=== PATIENT | female | born 1970 | race Caucasian/White ===

== ENCOUNTER 2023-12-10 12:33 | Outpatient (OUT) | payer OTHER, SELFPAY ==
--- NOTE | 2023-12-10 12:46 | VEIN_ITS ---
Patient Name: KERI AGRAWAL MR#: [id number] : 1970 Exam Date: 12/10/2023 Ordering Doctor: DR BE APONTE M.D. RADIOLOGY REPORT PROCEDURE: [facility] FACILITY EST COMPREHENSIVE VEIN CENTER - OFFICE VISIT INITIAL COMPARISON: None. PROGRESS NOTES: [age] year old female who presents with a 8 year history of dilated discolored veins, leg pain, swelling, muscle cramping, heaviness. The patient's leg symptoms are symmetric bilaterally.. There has been a progression of symptoms over time. This increases with prolonged leg dependency. The patient describes an improvement with rest and elevation. The patient denies any signs and symptoms to suggest arterial ischemia. The patient describes a family history heart disease, diabetes, and COPD. The patient has drinking and smoking history of : None. Patient has a past medical history significant for extensive past medical history to include cellulitis, hypertension, diabetes, congestive heart failure, and currently on warfarin. The patient has a history of several prior episodes of deep vein thrombosis. See separate history and physical for medication list. No prior treatment for varicose or spider veins. No prior use of compression stockings; but due to patient's physical limitations may not be able to put them on. After review of nurse notes, history and physical exam I discussed at length the pathophysiology of venous hypertension and possible treatments, therapies and strategies available. We discussed at length the importance of elevating the lower extremities above the level of the heart, increased physical activity and compression stocking use. Ultrasound venous reflux study performed today was discussed at length with the patient. The report demonstrates abnormally dilated and incompetent great saphenous veins bilaterally with social did abnormally dilated branch saphenous varicosities.. PHYSICAL EXAM: The right leg demonstrates a few scattered varicosities, a few spider veins, no ulceration, moderate edema, marked distal lower extremity skin discoloration. The left leg demonstrates a few varicosities, a few spider veins, no ulceration, moderate edema, no skin discoloration. Both thighs, legs and feet were symmetrically warm to the touch. Good posterior tibial and dorsalis pedis pulses were present bilaterally. VEIN/VC Facility EST Comprehensive IMPRESSION: 1. Bilateral lower extremity venous insufficiency 2. Bilateral lower extremity varicose veins 3. Mild-moderate bilateral lower extremity subcutaneous edema 4. No flow significant arterial disease 5. CEAP: C4a, EP, AP, [place] PLAN: 1. Continued use of compression stockings 2. Elevated legs and increased physical activity symptomatic relief 3. Endovenous laser ablation of right and left great saphenous veins. 4. Microfoam chemical ablation of bilateral lower extremity incompetent branch saphenous varicosities. Nurse notes, history and physical were reviewed and confirmed, see attached forms. The nurse was present throughout the physical exam and consultation Dictated by: Awais Kowalski M.D. on 12/10/2023 at 15:27 Approved by: Awais Kowalski M.D. on 12/10/2023 at 15:33
--- NOTE | 2023-12-10 12:46 | VEIN_ITS ---
Patient Name: KERI AGRAWAL MR#: [id number] : 1970 Exam Date: 12/10/2023 Ordering Doctor: DR BE APONTE M.D. RADIOLOGY REPORT PROCEDURE: VC EXT VENOUS REFLUX GABY LMTD COMPARISON: None. INDICATIONS: Pain due to varicose veins of bilateral legs I83.813 TECHNIQUE: Duplex imaging of the lower extremity to assess the deep and superficial venous system for the presence of deep or superficial venous incompetence and to document the location and severity of disease. The study includes evaluation of the great saphenous vein (GSV), anterior accessory saphenous vein (AASV) and small saphenous vein (SSV). Patient scanned in reverse Trendelenburg and standing. FINDINGS: RIGHT LOWER EXTREMITY: Saphenofemoral Junction Reflux: Yes 10.0mm 2.8 sec GSV: Diam (mm) Reflux/ Time (sec) Proximal Thigh 7.5 Yes 1.9 Mid Thigh 7.3 Yes 2.1 Distal Thigh 7.4 Yes 2.6 Prox Calf 7.7 Yes 2.2 Mid Calf 6.2 Yes 1.2 Saphenopopliteal Junction Reflux: 3.8mm Yes 1.6 SSV: Proximal Calf 3.6 Yes 0.6 Mid Calf 2.9 No AASV: Proximal Thigh 4.2 No Mid Thigh 4.7 Distal Thigh Thrombi: No acute or chronic thrombus visualized Compressibility: Normal Flow: 0.9s reflux in the popliteal vein Preforator: Dist/med calf 3.8mm with 1.9s reflux. Tech Note: Incompetent GSV. Patent varicose vein mid/med thigh 3.7mm with 1.6s reflux. Patent varicose prox/med calf 5.2mm with 1.1s reflux. Patent varicose vein 5.0mm with 1.7s reflux. LEFT LOWER EXTREMITY: Saphenofemoral Junction Reflux: Yes 7.6 mm 1.8 sec GSV: Diam (mm) Reflux/Time (sec) Proximal Thigh 8.1 Yes 1.9 Mid Thigh 5.7 Yes 1.3 Distal Thigh 6.3 Yes 1.4 Prox Calf 6.8 Yes 0.8 Mid Calf 5.9 Yes 0.6 Saphenopopliteal Junction Relux: 2.5 mm No SSV: Proximal Calf 3.8 Yes 0.9 Mid Calf 2.8 No AASV: Proximal Thigh 6.4 No Mid Thigh 4.2 No Distal Thigh Thrombi: No acute or chronic thrombus visualized Compressibility: Normal Flow: Normal General Cleaner: Dist/med calf 3.5mm with 0s reflux. Tech Note: Incompetent GSV. Patent varicose vein medial knee 4.2mm with 0.7s reflux. Patent varicose vein mid/med thigh 3.7mm with 1.5s reflux. CONCLUSION: 1. Abnormally dilated and incompetent great saphenous veins bilaterally with associated branch saphenous varicosities. Dictated by: Awais Kowalski M.D. on 12/10/2023 at 14:29 Approved by: Awais Kowalski M.D. on 12/10/2023 at 15:27
== END 2023-12-10 12:34 | disposition home or self-care (01) ==
LOC: VC 12:34
PROVIDERS: PCP Radiology Diagnostic Radiology; Visit Provider Radiology Diagnostic Radiology
DX: I83.813 Varicose veins of bilateral lower extremities with pain (principal)
CPT/HCPCS: 93970; G0463

== ENCOUNTER 2024-01-19 12:54 | Outpatient (OUT) | payer OTHER, SELFPAY ==
--- NOTE | 2024-01-19 13:06 | VEIN_ITS ---
[address] [address] Patient Name: KERI AGRAWAL MRN: [id number] date: 1970 Sex: F Assigned Patient Location: Current Patient Location: Accession/Order Number: [id number] Exam Date: 01/19/2024 13:13 Report Date: 01/19/2024 15:50 At the request of: BE APONTE Procedure: VC Endovenous Ablation 1VeinRT EXAMINATION: VC Endovenous Ablation 1VeinRT HISTORY: I83.813 Pain due to varicose veins of bilateral legs The risks and benefits of the procedure had been previously discussed, and were rediscussed at length. Informed written consent was obtained. Laila Stewart RN and Maggie Mcdermott RDMS, RVT assisted. Time out procedure was performed. The right lower extremity was prepared and draped in the usual sterile fashion to allow knee flexion in the sterile field. Duplex ultrasound probe was draped in a sterile cover, sterile transmission gel was used. Venous mapping was performed with the areas of dilation and large tributaries marked. The total length was 55 cm from the entry 3 cm above the ankle to 3 cm below the Saphenofemoral junction. The diameter of the right saphenous vein ranged from 7.7 mm. A 30 gauge needle and 1% buffered lidocaine was used to anesthetize the entry site. A 4 mm incision was made with a scalpel and the saphenous vein was entered percutaneously under direct ultrasound guidance with a micropuncture set, a single stick was successful in gaining access. A micro-guide wire was inserted and the needle removed. A micro-set including a dilator was inserted over the microwire and the needle and dilator were removed. A guide wire was inserted through the micro-set and guided through the saphenous vein to the saphenofemoral junction. The dilator was removed and an introducer sheath was inserted over the wire until the end of the sheath entered the saphenofemoral junction. The dilator and wire were removed and the 600 micron fiber was introduced and placed and positioned so that it extended beyond the sheath and was 3 cm distal to the saphenofemoral or saphenopopliteal junction. Final position of the fiber was determined by ultrasound guidance and duplex imaging. Tumescent anesthetic was delivered by ultrasound guidance. 200 cc of fluid was delivered along the entire course of the saphenous vein. The solution consisted of 1000 cc of normal saline with 40 mL of 1% lidocaine and 20 mL of sodium bicarbonate. A final positioning check was made. The energy source was turned on by means of the foot pedal and the fiber and sheath were withdrawn. The total number of Joules delivered was 2587. The laser was active for 323 seconds under continuous pulse, average laser use of 8 J. Laser start time: 2:01 PM Laser stop time: 2:06 PM Date: 01/19/2024. A duplex ultrasound revealed compressibility and flow at the saphenofemoral junction immediately after the procedure. Hemostasis at the access site was achieved. The skin incision of the saphenous vein was closed with a 4 x 4. A compression stocking was applied. Postop instructions were given. A follow up appointment was recommended and scheduled. The patient tolerated the procedure well. Electronically authenticated by: EFRAIN GARCIA Date: 01/19/2024 15:50
[2024-01-19] MEDS: LIDOCAINE HCL 1% 100 MG/10 ML MDV INJ (13:35)
[2024-01-19] MEDS: 0.9 % SODIUM CHLORIDE 500 ML, LIDOCAINE HCL 20 ML, SODIUM BICARBONATE 10 MEQ INJ (13:36)
== END 2024-01-19 12:55 | disposition home or self-care (01) ==
LOC: VC 13:05
PROVIDERS: PCP Radiology Diagnostic Radiology; Visit Provider Radiology Diagnostic Radiology
DX: I83.813 Varicose veins of bilateral lower extremities with pain (principal)
CPT/HCPCS: 36478

== ENCOUNTER 2024-02-09 12:44 | Outpatient (OUT) | payer OTHER, SELFPAY ==
--- NOTE | 2024-02-09 12:44 | VEIN_ITS ---
Patient Name: KERI AGRAWAL MR#: [id number] : 1970 Exam Date: 02/09/2024 Ordering Doctor: DR JOSÉ ANTONIO POE M.D. RADIOLOGY REPORT PROCEDURE: [facility] FACILITY EST LMTD VEIN CENTER - OFFICE VISIT FOLLOW UP COMPARISON: None. PROGRESS NOTES: The patient reports no significant problems following intravenous laser ablation of the right great saphenous vein. The patient did miss multiple follow-up exams and was counseled on the importance of follow-up after procedures. The patient did not wear compression stocking as she is not able to: Due to lack of strength. Physical exam demonstrates no bruising. No erythema or warmth to suggest cellulitis or thrombophlebitis. No active ulceration. Review of the ultrasound performed the same day demonstrates occlusive thrombus extending throughout the treated right great saphenous vein. No deep thrombus.. The patient expressed a desire to proceed with treatment of incompetent left great saphenous vein.. VEIN/VC Facility EST LMTD IMPRESSION: 1. Successful ablation of the right great saphenous vein 2. Persistent incompetent left great saphenous vein. PLAN: Intravenous laser ablation of the left great saphenous vein Nurse notes, history and physical were reviewed and confirmed, see attached forms. The nurse was present throughout the physical exam and consultation Dictated by: José Antonio Poe MD on 02/09/2024 at 13:36 Approved by: José Antonio Poe MD on 02/09/2024 at 13:49
--- NOTE | 2024-02-09 12:45 | VEIN_ITS ---
Patient Name: KERI AGRAWAL MR#: [id number] : 1970 Exam Date: 02/09/2024 Ordering Doctor: DR JOSÉ ANTONIO POE M.D. RADIOLOGY REPORT PROCEDURE: VC EXT VENOUS RT LMTD COMPARISON: None. INDICATIONS: I80.01 Phlebitis of superficial veins of rt lower extremity TECHNIQUE: Lower extremity robert scale and Duplex Doppler evaluation of the deep venous system from the inguinal ligament through the calf veins. FINDINGS: REGION: Right lower extremity. THROMBI: Negative for DVT. Heat induced thrombus visualized 2.4cm from the SFJ. The heat induced thrombus extends from groin to distal calf. COMPRESSIBILITY: Non-compressible segments corresponding to thrombus FLOW: Areas of no flow corresponding to thrombus CONCLUSION: Post ablation occlusion of the right great saphenous vein with heat induced thrombus 2.4 cm from the saphenofemoral junction Dictated by: José Antonio Poe MD on 02/09/2024 at 13:00 Approved by: José Antonio Poe MD on 02/09/2024 at 13:02
== END 2024-02-09 12:45 | disposition home or self-care (01) ==
LOC: VC 12:44
PROVIDERS: PCP Radiology Diagnostic Radiology; Visit Provider Radiology Diagnostic Radiology
DX: I80.01 Phlebitis and thrombophlebitis of superficial vessels of right lower extremity (principal)
CPT/HCPCS: 93971; G0463

== ENCOUNTER 2024-02-24 12:56 | Outpatient (OUT) | payer OTHER, SELFPAY ==
--- NOTE | 2024-02-24 12:59 | VEIN_ITS ---
[address] [address] Patient Name: KERI AGRAWAL MRN: [id number] date: 1970 Sex: F Assigned Patient Location: Current Patient Location: Accession/Order Number: [id number] Exam Date: 02/24/2024 13:10 Report Date: 02/24/2024 14:07 At the request of: BE APONTE Procedure: VC Endovenous Ablation 1VeinLT EXAMINATION: VC Endovenous Ablation 1VeinLT HISTORY: Pain due to varicose veins of bilateral legs I83.813 COMPARISON: No relevant comparison available. TECHNIQUE: The risks and benefits of the procedure had been previously discussed, and were rediscussed at length. Informed written consent was obtained. Leyda Pearson and Jian Flores assisted. Time out procedure was performed. The left lower extremity was prepared and draped in the usual sterile fashion to allow knee flexion in the sterile field. Duplex ultrasound probe was draped in a sterile cover, sterile transmission gel was used. Venous mapping was performed with the areas of dilation and large tributaries marked. The total length was 63 cm from the entry 6 cm above the medial malleolus to 3 cm below the saphenofemoral junction. The diameter of the greater saphenous vein ranged from 4-8 mm. A 30 gauge needle and 1% buffered lidocaine was used to anesthetize the entry site. A 4 mm incision was made with a scalpel and the saphenous vein was entered percutaneously under direct ultrasound guidance with a micropuncture set, a single stick was successful in gaining access. A micro-guide wire was inserted and the needle removed. A micro-set including a dilator was inserted over the microwire and the needle and dilator were removed. A 0.018 guide wire was inserted through the micro-set and threaded through the saphenous vein to the saphenofemoral junction. The dilator was removed and an introducer sheath was inserted over the wire until the end of the sheath entered the saphenofemoral junction. The dilator and wire were removed and the 600 micron fiber was introduced and placed and positioned so that it extended beyond the sheath and was 3 cm peripheral to the saphenofemoral femoral junction. Final position of the fiber was determined by ultrasound guidance and duplex imaging. Tumescent anesthetic was delivered by ultrasound guidance. 250 cc of fluid was delivered along the entire course of the saphenous vein. The solution consisted of 1000 cc of normal saline with 40 mL of 1% lidocaine and 20 mL of sodium bicarbonate. A final positioning check was made. The energy source was turned on by means of the foot pedal and the fiber and sheath were withdrawn. The total number of Joules delivered was 2924. The laser was active for 366 seconds under continuous pulse, average laser use of 8 J. Laser start time 1:45 PM 02/24/2024 . Laser stop time 1:52 PM 02/24/2024 . A duplex ultrasound revealed compressibility and flow at the saphenofemoral junction immediately after the procedure. Hemostasis at the access site was achieved. The skin incision of the saphenous vein was closed with a 4 x 4. A compression stocking was applied. Postop instructions were given. A follow up appointment was recommended and scheduled. The patient tolerated the procedure well and was discharged in good condition . VEIN/VC Endovenous Ablation 1VeinLT IMPRESSION: Technically successful endovenous laser ablation left great saphenous vein Electronically authenticated by: BE APONTE Date: 02/24/2024 14:07
[2024-02-24] MEDS: LIDOCAINE HCL 1% 100 MG/10 ML MDV INJ (13:06)
[2024-02-24] MEDS: 0.9 % SODIUM CHLORIDE 500 ML, LIDOCAINE HCL 20 ML, SODIUM BICARBONATE 10 MEQ INJ (13:06)
== END 2024-02-24 12:57 | disposition home or self-care (01) ==
LOC: VC 12:56
PROVIDERS: PCP Radiology Diagnostic Radiology; Visit Provider Radiology Diagnostic Radiology
DX: I83.813 Varicose veins of bilateral lower extremities with pain (principal)
CPT/HCPCS: 36478

== ENCOUNTER 2024-02-29 13:39 | Outpatient (OUT) | payer OTHER, SELFPAY ==
--- NOTE | 2024-02-29 11:34 | VEINCLINIC_ITS ---
Vital Signs 3 02/29/24 14:19 Height 5 ft 4 in Weight 122.47 kg BMI 46.3 BP 118/72 BP Location Left Brachial BP Position Sitting BP Cuff Size Adult BP Source Automatic Cuff Respiration 18 Pulse 68 Pulse Oximetry (%) 97 Varicose Veins Awais Gaines MD personally performed the services described in this documentation, as scribed by Gila Pearson RDMS in my presence and it is both accurate and complete. Gila Gaines RDMS, am scribing for, and in the presence of, Dr. Marshall Kowalski and in the presence of the patient. thigh: bilateral, knee: bilateral, calf: bilateral, ankle: bilateral and candelario: bilateral aching, dull, sharp, tender and other (heavy) 6 8 years Worsened in recent months: Yes long car trips and sitting bed rest and elevating extremities Reports limb pain, edema, leg edema and other (stasis dermatitis, cellulitis, hyperpigmentation) History of lower extremity trauma: No Superficial thrombophlebitis: Yes (DVT) Family history of varicose veins: yes Has patient had previous lower extremity venous surgery: No Patient has previously received the following treatment(s) for lower extremity varicose veins: Reports none Does patient have a history of : no Does patient intend to have future pregnancies: no Has patient had lower extremity venous scan with relux testing: Yes Support hose used: No Problems walking or doing physical activity: Yes Do you walk much: No Do you stand much: No Medication compliance: good Large amounts of Vitamin K: No Review of Systems 2 ROS0 Narrative Awais Gaines MD personally performed the services described in this documentation, as scribed by Gila Pearson RDMS in my presence and it is both accurate and complete. Gila Gaines RDMS, am scribing for, and in the presence of, Dr. Marshall Kowalski and in the presence of the patient. Status of ROS 10 or more systems reviewed and unremark able except as noted in history and below Cardiovascular Reports: edema, swelling of feet/ankles and leg pain with exertion Musculoskeletal Reports: extremity pain, extremity swelling, joint pain, joint swelling, muscle cramps and muscle weakness Integumentary/Breast Reports: itching, redness, skin pain, skin tenderness, skin swelling and changes in skin color Neurological Reports: weakness in extremities [facility] Medical History (Updated 02/29/24 @ 13:01 by Gila Pearson) [place] filter in place ?Z95.828 - Presence of other vascular implants and grafts (ICD-10) Phlebitis and thrombophlebitis of superficial vessels of right lower extremity ?I80.01 - Phlebitis and thrombophlebitis of superficial vessels of right lower extremity (ICD-10) Phlebitis and thrombophlebitis of superficial vessels of left lower extremity ?I80.02 - Phlebitis and thrombophlebitis of superficial vessels of left lower extremity (ICD-10) Varicose veins of bilateral lower extremities with pain ?I83.813 - Varicose veins of bilateral lower extremities with pain (ICD-10) Weakness of both lower limbs ?R29.898 - Other symptoms and signs involving the musculoskeletal system (ICD-10) Lower extremity edema ?R60.0 - Localized edema (ICD-10) Bowel obstruction ?K56.609 - Unspecified intestinal obstruction, unspecified as to partial versus complete obstruction (ICD-10) Hernia ?K46.9 - Unspecified abdominal hernia without obstruction or gangrene (ICD- 10) Anxiety with depression ?F41.8 - Other specified anxiety disorders (ICD-10) Anxiety disorder ?F41.9 - Anxiety disorder, unspecified (ICD-10) Morbid obesity ?E66.01 - Morbid (severe) obesity due to excess calories (ICD-10) Chronic obstructive pulmonary disease (COPD) ?J44.9 - Chronic obstructive pulmonary disease, unspecified (ICD-10) Congestive heart failure (CHF) ?I50.9 - Heart failure, unspecified (ICD-10) Asthma ?J45.909 - Unspecified asthma, uncomplicated (ICD-10) Diabetes mellitus type 2, noninsulin dependent ?E11.9 - Type 2 diabetes mellitus without complications (ICD-10) Hypertension ?I10 - Essential (primary) hypertension (ICD-10) DVT (deep venous thrombosis) ?I82.409 - Acute embolism and thrombosis of unspecified deep veins of unspecified lower extremity (ICD-10) Cellulitis ?L03.90 - Cellulitis, unspecified (ICD-10) Surgical History (Updated 02/29/24 @ 13:01 by Gila Pearson) Status post ablation of incompetent vein using laser ?Z98.890 - Other specified postprocedural states (ICD-10) History of carpal tunnel release ?Z98.890 - Other specified postprocedural states (ICD-10) History of tonsillectomy ?Z90.89 - Acquired absence of other organs (ICD-10) H/O exploratory laparotomy ?Z98.890 - Other specified postprocedural states (ICD-10) H/O bilateral oophorectomy ?Z90.722 - Acquired absence of ovaries, bilateral (ICD-10) History of endometrial ablation ?Z98.890 - Other specified postprocedural states (ICD-10) History of hernia repair ?Z98.890 - Other specified postprocedural states (ICD-10) ?Z87.19 - Personal history of other diseases of the digestive system (ICD-10) Meds Home Medications and Allergies Home Medications ?Medication ?Instructions ?Recorded ?Confirmed ?Type Coumadin See Rx Instructions .Route .COMPLEX 02/29/24 02/29/24 History calcium carbonate PO 02/29/24 History hdvazkkig-fyrrncwyo-mydowu alk PO 02/29/24 History conjugated estrogens .ROUTE 02/29/24 History empagliflozin .ROUTE 02/29/24 History furosemide 40 mg tablet (Lasix) 40 mg PO DAILY 02/29/24 02/29/24 History insulin aspart U-100 .ROUTE 02/29/24 History loratadine .ROUTE 02/29/24 History lorazepam .Route 02/29/24 History lurasidone .ROUTE 02/29/24 History meclizine .ROUTE 02/29/24 History montelukast .ROUTE 02/29/24 History potassium chloride .ROUTE 02/29/24 History pregabalin .ROUTE 02/29/24 History semaglutide subcut 02/29/24 History sertraline .ROUTE 02/29/24 History tizanidine .ROUTE 02/29/24 History trimipramine .ROUTE 02/29/24 History Allergies Allergy/AdvReac Type Severity Reaction Status Date / Time morphine Allergy Unknown Verified 02/19/24 17:42 Exam Narrative Exam Narrative: IAwais MD personally performed the services described in this documentation, as scribed by Gila Pearson RDMS in my presence and it is both accurate and complete. IGila Bollenbacher RDMS, am scribing for, and in the presence of, Dr. Marshall Kowalski and in the presence of the patient. Constitutional Vital Signs, click to edit/add: Awais Gaines MD personally performed the services described in this documentation, as scribed by Gila Pearson RDMS in my presence and it is both accurate and complete. Gila Gaines RDMS am scribing for, and in the presence of, Dr. Marshall Kowalski and in the presence of the patient. Documenting provider has reviewed patient's vital signs: yes Common normals: oriented x3 Nutritional appearance: obese centrally obese Lymph Lymphatic: no lymphedema noted Cardio Peripheral pulses: posterior tibial pulses present and dorsalis pedis pulses present Extremity General: calf tenderness and edema Right lower extremity: lower leg Right lower leg: inspection and palpation Left lower extremity: lower leg Left lower leg: inspection and palpation Extremity image (front): 2 1. Varicose vein 2. Varicose vein 3. Varicose vein 4. Varicose vein Neuro Common normals: oriented x3 Results Imaging Venous US: Radiologist's impression: Heat induced thrombus in 0.6 cm from SFJ and extends to distal lower leg. Assessment and Plan Assessment and Plan (1) Phlebitis and thrombophlebitis of superficial vessels of left lower extremity: Plan Patient in today for follow up ultrasound of lower extremity following treatment of EVLT of left GSV completed on 02/24/24. Awais Gaines MD personally performed the services described in this documentation, as scribed by Gila Pearson RDMS in my presence and it is both accurate and complete. Gila Gaines RDMS am scribing for, and in the presence of, Dr. Marshall Kowalski and in the presence of the patient.
--- NOTE | 2024-02-29 13:43 | VEIN_ITS ---
Patient Name: KERI AGRAWAL MR#: [id number] : 1970 Exam Date: 02/29/2024 Ordering Doctor: DR BE APONTE M.D. RADIOLOGY REPORT PROCEDURE: VC EXT VENOUS LT LIMITED COMPARISON: None. INDICATIONS: I80.02 Phlebitis of superficial veins of lt lower extremity TECHNIQUE: Lower extremity robert scale and Duplex Doppler evaluation of the deep venous system from the inguinal ligament through the calf veins. FINDINGS: REGION: Left lower extremity. THROMBI: Negative for DVT. Heat induced thrombus in left GSV 0.6cm from SFJ and extends to distal lower leg. COMPRESSIBILITY: Non-compressible segments corresponding to thrombus FLOW: Areas of no flow corresponding to thrombus OTHER: CONCLUSION: 1. Successful post ablation occlusion of left great saphenous vein. Dictated by: Awais Kowalski M.D. on 02/29/2024 at 14:47 Approved by: Awais Kowalski M.D. on 02/29/2024 at 14:48
--- NOTE | 2024-02-29 13:43 | VEIN_ITS ---
Patient Name: KERI AGRAWAL MR#: [id number] : 1970 Exam Date: 02/29/2024 Ordering Doctor: DR BE APONTE M.D. RADIOLOGY REPORT PROCEDURE: [facility] - OFFICE VISIT FOLLOW UP COMPARISON: [facility], 02/09/2024. PROGRESS NOTES: The patient reports improvement in leg symptoms. There has been interval reduction in varicosities. The patient has followed our recommendations to walk 20-30 minutes once or twice per day since the procedure. Physical exam demonstrates decrease in varicosities of the leg. Persistent varicosities are identified along the legs bilaterally. Review of the ultrasound performed the same day demonstrates occlusive thrombus extending throughout the treated vein(s), see separate report, consistent with a successful ablation. No thrombus extending into or beyond the saphenofemoral junction. The patient expressed a desire to proceed with treatment of remaining incompetent branch saphenous varicosities. The patient was informed that treatment was a process and would require 2-3 procedures/sessions. [facility]: 1. Successful ablation of the left great saphenous vein(s). 2. Persistent incompetent varicose veins and lower extremity symptoms. PLAN: Microfoam chemical ablation of right and left lower extremity incompetent branch saphenous varicosities. Nurse notes, history and physical were reviewed and confirmed, see attached forms. The nurse was present throughout the physical exam and consultation Dictated by: Awais Kowalski M.D. on 02/29/2024 at 14:48 Approved by: Awais Kowalski M.D. on 02/29/2024 at 14:51
[2024-02-29 14:19] VITALS: BP 118/72; PULSE 68; O2SAT 97; BMI 46.3
--- NOTE | 2024-02-29 15:12 | P.DS_ITS ---
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
--- NOTE | 2024-02-29 15:12 | W.VEIN ---
Discharge Plan Discharge Disposition: Home, Self-Care Outpatient Diagnostics: VC INJ Foam Sclerosant WUStoney CPA TAX (Routine) Timeframe: 2 Weeks Facility: [facility] - Location: Vein Center Ordered By: Awais Kowalski Follow Up Appointments: 03/14/2024 Print Language: Telugu Discharge Date/Time: 02/29/24 15:13
== END 2024-02-29 15:13 | disposition home or self-care (01) ==
LOC: VC 13:39
PROVIDERS: PCP Radiology Diagnostic Radiology; Visit Provider Radiology Diagnostic Radiology
DX: I80.02 Phlebitis and thrombophlebitis of superficial vessels of left lower extremity (principal)
CPT/HCPCS: 93971; G0463

== ENCOUNTER 2024-03-14 13:00 | Outpatient (OUT) | payer OTHER, SELFPAY ==
--- NOTE | 2024-03-14 13:02 | VEIN_ITS ---
[address] [address] Patient Name: KERI AGRAWAL MRN: [id number] date: 1970 Sex: F Assigned Patient Location: Current Patient Location: Accession/Order Number: [id number] Exam Date: 03/14/2024 13:02 Report Date: 03/14/2024 14:11 At the request of: EFRAIN GARCIA Procedure: VC INJ Foam Sclerosant WUS SEED SPECIALIST PROCEDURE: VC INJ Foam Sclerosant WUS SEED SPECIALIST COMPARISON: None. HISTORY: I83.813 - Varicose veins of bilateral lower extremities w... Pre-operative Diagnosis: CEAP class C3 venous insufficiency with pain, tenderness, edema and incompetent left saphenous and varicose vein(s), chronic venous insufficiency left leg secondary to venous incompetence Post-operative Diagnosis: CEAP class C3 venous insufficiency with pain, tenderness, edema and incompetent left saphenous and varicose vein(s), chronic venous insufficiency left leg secondary to venous incompetence Procedure Performed: 1. Ultrasound-guided microfoam chemical ablation with Varithenaregistered 2. Intraoperative ultrasound guidance Indications for Procedure: 53-year-old female who presents with a long history of lower extremity pain and swelling varicose veins. The patient failed conservative medical therapy including medical compression stockings, exercise and analgesics. Prior procedures include endovenous laser ablation. Multiple incompetent varicosities of the left leg. Duplex scan showed reflux and enlarged diameters up to 5 mm. The patient underwent informed consent including management options where the complications of infection, bleeding, pain, and skin injury were discussed. Particular attention was spent discussing thrombus extension and deep vein thrombosis as well as the possibility of pulmonary embolus and treatment with oral or injectable blood thinners. Procedure: The patient walked to the procedure room. All applicable staff donned appropriate apparel. A procedure timeout was performed to confirm correct patient, correct extremity, correct procedure, and correct room set-up including presence of all applicable supplies, devices, and drugs. A duplex ultrasound, performed by myself confirmed the location and incompetence of branch saphenous varicosities and their course was marked on the skin together with the dilated tributaries. The extent of treatment of the vein and the associated varicosities was determined through ultrasound mapping. The skin was prepped and then punctured with a butterfly needle and advanced under ultrasound guidance. The Varithenaregistered canister was activated and the canister was primed and purged as required in the instructions for use. Varithenaregistered was drawn into a sterile syringe. The following injections were made: 6 cc injected into a 4 mm varicose vein, branch saphenous varicosities extending from the great saphenous vein. Associated perforating vein was held closed with manual pressure interval dissipation of foam was visualized by ultrasound 6 cc injected into a 5 mm varicose vein posterior mid calf Varithenaregistered was slowly administered at 0.5-1.0 cc/second with close observation by ultrasound of its course in the vessels. Total volume utilized was: 12cc. Following administration of Varithenaregistered the leg was elevated and the patient was asked to repeatedly dorsiflex the ankle to limit flow of Varithenaregistered into perforating veins. Once appropriate spasm had been confirmed in the treated veins, the vascular catheter was removed from the leg and light pressure was applied over the puncture site for hemostasis. The common femoral and deep superficial veins were then evaluated for flow and compressibility prior to dressing placement. The lower extremity was kept elevated at 45 degrees above the horizontal and cording material was applied over the saphenous segments and tributaries to allow for eccentric compression over the target vessels including the targeted saphenous vein(s). A multilayer dressing was applied consisting of foam pads, coban and thigh-high 20-30 mm Hg compression elastic support hose were placed on the patient. The leg was lowered only after compression had been applied and the patient was immediately ambulatory. The patient ambulated 10 minutes under supervision and was without apparent concerns at time of release. Post-care instructions include advising patient to keep post-treatment bandages in place and dry for 48 hours, avoid extended periods of inactivity, avoid heavy exercise for one week, wear compression stockings on the treated leg continuously for two weeks, to walk daily for 10 minutes over the next month. The patient was instructed to take an anti-inflammatory medicine as needed and to follow up for color duplex scan of the Saphenous veins, the treated branch saphenous varicosities, the adjacent deep veins, and additional treatment within 7 days. PERSONNEL: Jian Flores RN. Trinidad Mcdermott Electronically authenticated by: BE APONTE Date: 03/14/2024 14:11
[2024-03-14 14:51] VITALS: BP 102/56; PULSE 75; O2SAT 95
--- NOTE | 2024-03-14 14:51 | VEINCLINIC_ITS ---
Vital Signs 03/14/24 14:51 BP 102/56 BP Location Right Brachial BP Position Sitting BP Cuff Size Adult BP Source Manual Cuff Respiration 16 Pulse 75 Pulse Oximetry (%) 95 Oxygen Delivery Method Room Air Varicose Veins Patient in this day for varithena/microfoam chemical ablation left leg José Antonio Gaines MD personally performed the services described in this documentation, as scribed by Jian Flores RN in my presence and it is both accurate and complete. IJian RN, am scribing for, and in the presence of, Dr. José Antonio Poe and in the presence of the patient. thigh: bilateral, knee: bilateral, calf: bilateral, ankle: bilateral and candelario: bilateral aching, dull, sharp, tender and other (heavy) 6 8 years Worsened in recent months: Yes long car trips and sitting bed rest and elevating extremities Reports limb pain, edema, leg edema and other (stasis dermatitis, cellulitis, hyperpigmentation) History of lower extremity trauma: No Superficial thrombophlebitis: Yes (DVT) Family history of varicose veins: yes Has patient had previous lower extremity venous surgery: No Patient has previously received the following treatment(s) for lower extremity varicose veins: Reports none Does patient have a history of : no Does patient intend to have future pregnancies: no Has patient had lower extremity venous scan with relux testing: Yes Support hose used: No Problems walking or doing physical activity: Yes Do you walk much: No Do you stand much: No Medication compliance: good Large amounts of Vitamin K: No Review of Systems ROS Narrative José Antonio Gaines MD personally performed the services described in this documentation, as scribed by Jian Flores RN in my presence and it is both accurate and complete. Jian Gaines RN, am scribing for, and in the presence of, Dr. José Antonio Poe and in the presence of the patient. Status of ROS 10 or more systems reviewed and unremark able except as noted in history and below Cardiovascular Reports: edema, swelling of feet/ankles and leg pain with exertion Musculoskeletal Reports: extremity pain, extremity swelling, joint pain, joint swelling, muscle cramps and muscle weakness Integumentary/Breast Reports: redness Neurological Reports: weakness in extremities [facility] Medical History (Updated 02/29/24 @ 13:01 by Gila Pearson) [place] filter in place ?Z95.828 - Presence of other vascular implants and grafts (ICD-10) Phlebitis and thrombophlebitis of superficial vessels of right lower extremity ?I80.01 - Phlebitis and thrombophlebitis of superficial vessels of right lower extremity (ICD-10) Phlebitis and thrombophlebitis of superficial vessels of left lower extremity ?I80.02 - Phlebitis and thrombophlebitis of superficial vessels of left lower extremity (ICD-10) Varicose veins of bilateral lower extremities with pain ?I83.813 - Varicose veins of bilateral lower extremities with pain (ICD-10) Weakness of both lower limbs ?R29.898 - Other symptoms and signs involving the musculoskeletal system (ICD-10) Lower extremity edema ?R60.0 - Localized edema (ICD-10) Bowel obstruction ?K56.609 - Unspecified intestinal obstruction, unspecified as to partial versus complete obstruction (ICD-10) Hernia ?K46.9 - Unspecified abdominal hernia without obstruction or gangrene (ICD- 10) Anxiety with depression ?F41.8 - Other specified anxiety disorders (ICD-10) Anxiety disorder ?F41.9 - Anxiety disorder, unspecified (ICD-10) Morbid obesity ?E66.01 - Morbid (severe) obesity due to excess calories (ICD-10) Chronic obstructive pulmonary disease (COPD) ?J44.9 - Chronic obstructive pulmonary disease, unspecified (ICD-10) Congestive heart failure (CHF) ?I50.9 - Heart failure, unspecified (ICD-10) Asthma ?J45.909 - Unspecified asthma, uncomplicated (ICD-10) Diabetes mellitus type 2, noninsulin dependent ?E11.9 - Type 2 diabetes mellitus without complications (ICD-10) Hypertension ?I10 - Essential (primary) hypertension (ICD-10) DVT (deep venous thrombosis) ?I82.409 - Acute embolism and thrombosis of unspecified deep veins of unspecified lower extremity (ICD-10) Cellulitis ?L03.90 - Cellulitis, unspecified (ICD-10) Surgical History (Updated 02/29/24 @ 13:01 by Gila Pearson) Status post ablation of incompetent vein using laser ?Z98.890 - Other specified postprocedural states (ICD-10) History of carpal tunnel release ?Z98.890 - Other specified postprocedural states (ICD-10) History of tonsillectomy ?Z90.89 - Acquired absence of other organs (ICD-10) H/O exploratory laparotomy ?Z98.890 - Other specified postprocedural states (ICD-10) H/O bilateral oophorectomy ?Z90.722 - Acquired absence of ovaries, bilateral (ICD-10) History of endometrial ablation ?Z98.890 - Other specified postprocedural states (ICD-10) History of hernia repair ?Z98.890 - Other specified postprocedural states (ICD-10) ?Z87.19 - Personal history of other diseases of the digestive system (ICD-10) Meds Home Medications and Allergies Home Medications ?Medication ?Instructions ?Recorded ?Confirmed ?Type Coumadin See Rx Instructions .Route .COMPLEX 02/29/24 02/29/24 History calcium carbonate PO 02/29/24 History kbksmqxut-qmiaeniqn-zgcoqs alk PO 02/29/24 History conjugated estrogens .ROUTE 02/29/24 History empagliflozin .ROUTE 02/29/24 History furosemide 40 mg tablet (Lasix) 40 mg PO DAILY 02/29/24 02/29/24 History insulin aspart U-100 .ROUTE 02/29/24 History loratadine .ROUTE 02/29/24 History lorazepam .Route 02/29/24 History lurasidone .ROUTE 02/29/24 History meclizine .ROUTE 02/29/24 History montelukast .ROUTE 02/29/24 History potassium chloride .ROUTE 02/29/24 History pregabalin .ROUTE 02/29/24 History semaglutide subcut 02/29/24 History sertraline .ROUTE 02/29/24 History tizanidine .ROUTE 02/29/24 History trimipramine .ROUTE 02/29/24 History Allergies Allergy/AdvReac Type Severity Reaction Status Date / Time morphine Allergy Unknown Verified 02/19/24 17:42 Exam Narrative Exam Narrative: José Antonio Gaines MD personally performed the services described in this documentation, as scribed by Jian Flores RN in my presence and it is both accurate and complete. Jian Gaines RN, am scribing for, and in the presence of, Dr. José Antonio Poe and in the presence of the patient.. Constitutional Vital Signs, click to edit/add: José Antonio Gaines MD personally performed the services described in this documentation, as scribed by Jian Flores RN in my presence and it is both accurate and complete. IJian RN, am scribing for, and in the presence of, Dr. José Antonio Poe and in the presence of the patient. Documenting provider has reviewed patient's vital signs: yes Common normals: oriented x3 Nutritional appearance: obese centrally obese Lymph Lymphatic: no lymphedema noted Extremity General: edema Neuro Common normals: oriented x3 Assessment and Plan Assessment and Plan (1) Varicose veins of bilateral lower extremities with pain: Plan leg microfoam chemical ablation/Varithena: left Risks and benefits of the procedure were discussed at length and informed written consent was obtained.? Time-out procedure was performed and the correct patient and procedure were confirmed.? Staff present during time-out: Jian Flores RN and José Antonio Poe MD.? Patient prepped and procedure performed in usual sterile fashion.? Patient was placed in Trendelenburg prior to Polidocanol/Varithena injections. Sclerosing Agent:?? 12cc 1% Polidocanol/Varithena Site Injected: left lecc vartihena administered in to a 4mm varicose vein extending off the GSV 6cc varithena administered in to a 5mm varicose vein posterior mid calf Number of Injections:? 2 The patient tolerated the procedure well without complication.? Hemostasis was obtained and thigh-high compression stocking was applied with foam pads.? Instructed patient to wear stocking for at least 96 hours and sleep with it and only remove for showering.? The patient was instructed to? wear stocking for 2 weeks.? Patient verbalizes understanding and states they will comply.? Patient was given post-procedure instructions. Patient was discharged in good condition.? Scheduled to undergo limited venous ultrasound and? exam on 03/21/2024. José Antonio Gaines MD personally performed the services described in this documentation, as scribed by Jina Flores RN in my presence and it is both accurate and complete. IJian RN, am scribing for, and in the presence of, Dr. José Antonio Poe and in the presence of the patient. Procedures Procedure Note Date of procedure: 03/14/24 Procedure: Varithena/microfoam chemical ablation left leg 03/14/2024 Surgeon: José Antonio Poe
--- NOTE | 2024-03-14 15:07 | W.VEIN ---
Discharge Plan Discharge Disposition: Home, Self-Care Outpatient Diagnostics: VC Facility EST LMTD (Routine) Timeframe: 2 Weeks Facility: [facility] - Location: Vein Center Ordered By: José Antonio Poe VC EXT Venous LT Limited (Routine) Timeframe: 2 Weeks Facility: [facility] - Location: Vein Center Ordered By: José Antonio Poe Follow Up Appointments: 03/21/2024 Plan of Treatment: f/u u/s post varithena left leg Patient Instructions: Polidocanol (By injection) (Kaila Díaz) Print Language: Syriac Discharge Date/Time: 03/14/24 15:12
== END 2024-03-14 15:12 | disposition home or self-care (01) ==
PROVIDERS: PCP Radiology Diagnostic Radiology; Visit Provider Radiology Diagnostic Radiology
DX: I83.813 Varicose veins of bilateral lower extremities with pain (principal)
CPT/HCPCS: 36466

== ENCOUNTER 2024-03-23 11:14 | Outpatient (OUT) | payer OTHER, SELFPAY ==
--- NOTE | 2024-03-21 07:50 | V.VEINS.HP ---
Varicose Veins Patient in today for follow up ultrasound of left lower extremity following treatment of Varithena/microfoam completed on 03/14/24. José Antonio Gaines MD personally performed the services described in this documentation, as scribed by Gila Pearson RDMS in my presence and it is both accurate and complete. Gila Gaines RDMS, am scribing for, and in the presence of, Dr. José Antonio Poe and in the presence of the patient. thigh: bilateral, knee: bilateral, calf: bilateral, ankle: bilateral and candelario: bilateral aching, dull, sharp, tender and other (heavy) 6 8 years Worsened in recent months: Yes long car trips and sitting bed rest and elevating extremities Reports limb pain, edema, leg edema and other (stasis dermatitis, cellulitis, hyperpigmentation) History of lower extremity trauma: No Superficial thrombophlebitis: Yes (DVT) Family history of varicose veins: yes Has patient had previous lower extremity venous surgery: No Patient has previously received the following treatment(s) for lower extremity varicose veins: Reports none Does patient have a history of : no Does patient intend to have future pregnancies: no Has patient had lower extremity venous scan with relux testing: Yes Support hose used: No Problems walking or doing physical activity: Yes Do you walk much: No Do you stand much: No Medication compliance: good Large amounts of Vitamin K: No Review of Systems ROS Narrative José Antonio Gaines MD personally performed the services described in this documentation, as scribed by Gila Pearson RDMS in my presence and it is both accurate and complete. Gila Gaines RDMS, am scribing for, and in the presence of, Dr. José Antonio Poe and in the presence of the patient. Status of ROS 10 or more systems reviewed and unremarkable except as noted in history and below Cardiovascular Reports: edema, swelling of feet/ankles and leg pain with exertion Musculoskeletal Reports: extremity pain, extremity swelling, joint pain, joint swelling, muscle cramps and muscle weakness Integumentary/Breast Reports: redness Neurological Reports: weakness in extremities [facility] Medical History (Updated 02/29/24 @ 13:01 by Gila Pearson) [place] filter in place ?Z95.828 - Presence of other vascular implants and grafts (ICD-10) Phlebitis and thrombophlebitis of superficial vessels of right lower extremity ?I80.01 - Phlebitis and thrombophlebitis of superficial vessels of right lower extremity (ICD-10) Phlebitis and thrombophlebitis of superficial vessels of left lower extremity ?I80.02 - Phlebitis and thrombophlebitis of superficial vessels of left lower extremity (ICD-10) Varicose veins of bilateral lower extremities with pain ?I83.813 - Varicose veins of bilateral lower extremities with pain (ICD-10) Weakness of both lower limbs ?R29.898 - Other symptoms and signs involving the musculoskeletal system (ICD-10) Lower extremity edema ?R60.0 - Localized edema (ICD-10) Bowel obstruction ?K56.609 - Unspecified intestinal obstruction, unspecified as to partial versus complete obstruction (ICD-10) Hernia ?K46.9 - Unspecified abdominal hernia without obstruction or gangrene (ICD-10) Anxiety with depression ?F41.8 - Other specified anxiety disorders (ICD-10) Anxiety disorder ?F41.9 - Anxiety disorder, unspecified (ICD-10) Morbid obesity ?E66.01 - Morbid (severe) obesity due to excess calories (ICD-10) Chronic obstructive pulmonary disease (COPD) ?J44.9 - Chronic obstructive pulmonary disease, unspecified (ICD-10) Congestive heart failure (CHF) ?I50.9 - Heart failure, unspecified (ICD-10) Asthma ?J45.909 - Unspecified asthma, uncomplicated (ICD-10) Diabetes mellitus type 2, noninsulin dependent ?E11.9 - Type 2 diabetes mellitus without complications (ICD-10) Hypertension ?I10 - Essential (primary) hypertension (ICD-10) DVT (deep venous thrombosis) ?I82.409 - Acute embolism and thrombosis of unspecified deep veins of unspecified lower extremity (ICD-10) Cellulitis ?L03.90 - Cellulitis, unspecified (ICD-10) Surgical History (Updated 02/29/24 @ 13:01 by Gila Pearson) Status post ablation of incompetent vein using laser ?Z98.890 - Other specified postprocedural states (ICD-10) History of carpal tunnel release ?Z98.890 - Other specified postprocedural states (ICD-10) History of tonsillectomy ?Z90.89 - Acquired absence of other organs (ICD-10) H/O exploratory laparotomy ?Z98.890 - Other specified postprocedural states (ICD-10) H/O bilateral oophorectomy ?Z90.722 - Acquired absence of ovaries, bilateral (ICD-10) History of endometrial ablation ?Z98.890 - Other specified postprocedural states (ICD-10) History of hernia repair ?Z98.890 - Other specified postprocedural states (ICD-10) ?Z87.19 - Personal history of other diseases of the digestive system (ICD-10) Meds Home Medications and Allergies Home Medications ?Medication ?Instructions ?Recorded ?Confirmed ?Type Coumadin See Rx Instructions .Route .COMPLEX 02/29/24 02/29/24 History calcium carbonate PO 02/29/24 History heefmpuri-pbuusxzrv-erehhm alk PO 02/29/24 History conjugated estrogens .ROUTE 02/29/24 History empagliflozin .ROUTE 02/29/24 History furosemide 40 mg tablet (Lasix) 40 mg PO DAILY 02/29/24 02/29/24 History insulin aspart U-100 .ROUTE 02/29/24 History loratadine .ROUTE 02/29/24 History lorazepam .Route 02/29/24 History lurasidone .ROUTE 02/29/24 History meclizine .ROUTE 02/29/24 History montelukast .ROUTE 02/29/24 History potassium chloride .ROUTE 02/29/24 History pregabalin .ROUTE 02/29/24 History semaglutide subcut 02/29/24 History sertraline .ROUTE 02/29/24 History tizanidine .ROUTE 02/29/24 History trimipramine .ROUTE 02/29/24 History Allergies Allergy/AdvReac Type Severity Reaction Status Date / Time morphine Allergy Unknown Verified 02/19/24 17:42 Exam Narrative Exam Narrative: Patient has no new complaints today. José Antonio Gaines MD personally performed the services described in this documentation, as scribed by Gila Pearson RDMS in my presence and it is both accurate and complete. Gila Gaines RDMS, am scribing for, and in the presence of, Dr. José Antonio Poe and in the presence of the patient. Constitutional Vital Signs, click to edit/add: José Antonio Gaines MD personally performed the services described in this documentation, as scribed by Jian Flores RN in my presence and it is both accurate and complete. Jian Ganies RN, am scribing for, and in the presence of, Dr. José Antonio Poe and in the presence of the patient. Documenting provider has reviewed patient's vital signs: yes Common normals: oriented x3 Nutritional appearance: obese centrally obese Lymph Lymphatic: no lymphedema noted Extremity General: edema Right lower extremity: lower leg Left lower extremity: lower leg Neuro Common normals: oriented x3 Results Imaging Venous US: Radiologist's impression: Chemically induced thrombus in multiple varicose veins in left leg. José Antonio Gaines MD personally performed the services described in this documentation, as scribed by Gila Pearson RDMS in my presence and it is both accurate and complete. Gila Gaines RDMS, am scribing for, and in the presence of, Dr. José Antonio Poe and in the presence of the patient. Assessment and Plan Assessment and Plan Plan Patient in today for follow up ultrasound of left lower extremity following treatment of Varithena/microfoam completed on 03/14/24. José Antonio Gaines MD personally performed the services described in this documentation, as scribed by Gila Pearson RDMS in my presence and it is both accurate and complete. Gila Gaines RDMS, am scribing for, and in the presence of, Dr. José Antonio Poe and in the presence of the patient.
--- NOTE | 2024-03-23 07:50 | VEINCLINIC_ITS ---
Vital Signs 03/23/24 11:38 Height 5 ft 4 in Weight 122 kg BMI 46.2 BP 117/83 BP Location Right Brachial BP Position Sitting BP Cuff Size Adult BP Source Automatic Cuff Respiration 18 Pulse 75 Pulse Oximetry (%) 99 Oxygen Delivery Method Room Air Comment The patient's blood pressure is elevated. Varicose Veins Patient in today for follow up ultrasound of left lower extremity following treatment of Varithena/microfoam completed on 03/14/24. José Antonio Gaines MD personally performed the services described in this documentation, as scribed by Gila Pearson RDMS in my presence and it is both accurate and complete. Gila Gaines RDMS, am scribing for, and in the presence of, Dr. José Antonio Poe and in the presence of the patient. thigh: bilateral, knee: bilateral, calf: bilateral, ankle: bilateral and candelario: bilateral aching, dull, sharp, tender and other (heavy) 6 8 years Worsened in recent months: Yes long car trips and sitting bed rest and elevating extremities Reports limb pain, edema, leg edema and other (stasis dermatitis, cellulitis, hyperpigmentation) History of lower extremity trauma: No Superficial thrombophlebitis: Yes (DVT) Family history of varicose veins: yes Has patient had previous lower extremity venous surgery: No Patient has previously received the following treatment(s) for lower extremity varicose veins: Reports none Does patient have a history of : no Does patient intend to have future pregnancies: no Has patient had lower extremity venous scan with relux testing: Yes Support hose used: No Problems walking or doing physical activity: Yes Do you walk much: No Do you stand much: No Medication compliance: good Large amounts of Vitamin K: No Review of Systems ROS Narrative José Antnoio Gaines MD personally performed the services described in this documentation, as scribed by Gila Pearson RDMS in my presence and it is both accurate and complete. Gila Gaines RDMS, am scribing for, and in the presence of, Dr. José Antonio Poe and in the presence of the patient. Status of ROS 10 or more systems reviewed and unremark able except as noted in history and below Cardiovascular Reports: edema, swelling of feet/ankles and leg pain with exertion Musculoskeletal Reports: extremity pain, extremity swelling, joint pain, joint swelling, muscle cramps and muscle weakness Integumentary/Breast Reports: redness Neurological Reports: weakness in extremities [facility] Medical History (Updated 02/29/24 @ 13:01 by Gila Pearson) [place] filter in place ?Z95.828 - Presence of other vascular implants and grafts (ICD-10) Phlebitis and thrombophlebitis of superficial vessels of right lower extremity ?I80.01 - Phlebitis and thrombophlebitis of superficial vessels of right lower extremity (ICD-10) Phlebitis and thrombophlebitis of superficial vessels of left lower extremity ?I80.02 - Phlebitis and thrombophlebitis of superficial vessels of left lower extremity (ICD-10) Varicose veins of bilateral lower extremities with pain ?I83.813 - Varicose veins of bilateral lower extremities with pain (ICD-10) Weakness of both lower limbs ?R29.898 - Other symptoms and signs involving the musculoskeletal system (ICD-10) Lower extremity edema ?R60.0 - Localized edema (ICD-10) Bowel obstruction ?K56.609 - Unspecified intestinal obstruction, unspecified as to partial versus complete obstruction (ICD-10) Hernia ?K46.9 - Unspecified abdominal hernia without obstruction or gangrene (ICD- 10) Anxiety with depression ?F41.8 - Other specified anxiety disorders (ICD-10) Anxiety disorder ?F41.9 - Anxiety disorder, unspecified (ICD-10) Morbid obesity ?E66.01 - Morbid (severe) obesity due to excess calories (ICD-10) Chronic obstructive pulmonary disease (COPD) ?J44.9 - Chronic obstructive pulmonary disease, unspecified (ICD-10) Congestive heart failure (CHF) ?I50.9 - Heart failure, unspecified (ICD-10) Asthma ?J45.909 - Unspecified asthma, uncomplicated (ICD-10) Diabetes mellitus type 2, noninsulin dependent ?E11.9 - Type 2 diabetes mellitus without complications (ICD-10) Hypertension ?I10 - Essential (primary) hypertension (ICD-10) DVT (deep venous thrombosis) ?I82.409 - Acute embolism and thrombosis of unspecified deep veins of unspecified lower extremity (ICD-10) Cellulitis ?L03.90 - Cellulitis, unspecified (ICD-10) Surgical History (Updated 02/29/24 @ 13:01 by Gila Pearson) Status post ablation of incompetent vein using laser ?Z98.890 - Other specified postprocedural states (ICD-10) History of carpal tunnel release ?Z98.890 - Other specified postprocedural states (ICD-10) History of tonsillectomy ?Z90.89 - Acquired absence of other organs (ICD-10) H/O exploratory laparotomy ?Z98.890 - Other specified postprocedural states (ICD-10) H/O bilateral oophorectomy ?Z90.722 - Acquired absence of ovaries, bilateral (ICD-10) History of endometrial ablation ?Z98.890 - Other specified postprocedural states (ICD-10) History of hernia repair ?Z98.890 - Other specified postprocedural states (ICD-10) ?Z87.19 - Personal history of other diseases of the digestive system (ICD-10) Meds Home Medications and Allergies Home Medications ?Medication ?Instructions ?Recorded ?Confirmed ?Type Coumadin See Rx Instructions .Route .COMPLEX 02/29/24 02/29/24 History calcium carbonate PO 02/29/24 History uzgjrzsqu-iahpqemky-dcoavg alk PO 02/29/24 History conjugated estrogens .ROUTE 02/29/24 History empagliflozin .ROUTE 02/29/24 History furosemide 40 mg tablet (Lasix) 40 mg PO DAILY 02/29/24 02/29/24 History insulin aspart U-100 .ROUTE 02/29/24 History loratadine .ROUTE 02/29/24 History lorazepam .Route 02/29/24 History lurasidone .ROUTE 02/29/24 History meclizine .ROUTE 02/29/24 History montelukast .ROUTE 02/29/24 History potassium chloride .ROUTE 02/29/24 History pregabalin .ROUTE 02/29/24 History semaglutide subcut 02/29/24 History sertraline .ROUTE 02/29/24 History tizanidine .ROUTE 02/29/24 History trimipramine .ROUTE 02/29/24 History Allergies Allergy/AdvReac Type Severity Reaction Status Date / Time morphine Allergy Unknown Verified 02/19/24 17:42 Exam Narrative Exam Narrative: Patient has no complaints today. I, José Antonio Poe MD personally performed the services described in this documentation, as scribed by Gila Pearson RDMS in my presence and it is both accurate and complete. Gila Gaines RDMS am scribing for, and in the presence of, Dr. José Antonio Poe and in the presence of the patient. Constitutional Vital Signs, click to edit/add: José Antonio Gaines MD personally performed the services described in this documentation, as scribed by Jian Flores RN in my presence and it is both accurate and complete. Jian Gaines RN, am scribing for, and in the presence of, Dr. José Antonio Poe and in the presence of the patient. Documenting provider has reviewed patient's vital signs: yes Common normals: oriented x3 Nutritional appearance: obese centrally obese Lymph Lymphatic: no lymphedema noted Extremity General: edema Neuro Common normals: oriented x3 Results Imaging Venous US: Radiologist's impression: Chemically induced thrombus in multiple varicose veins in left leg. Thrombus extends into PTV mid to distal lower leg. José Antonio Gaines MD personally performed the services described in this documentation, as scribed by Gila Pearson RDMS in my presence and it is both accurate and complete. Gila Gaines RDMS am scribing for, and in the presence of, Dr. José Antonio Poe and in the presence of the patient. Assessment and Plan Assessment and Plan (1) Phlebitis and thrombophlebitis of superficial vessels of left lower extremity: Plan Patient will call when she is ready to return for Varithena/microfoam of right leg. José Antonio Gaines MD personally performed the services described in this documentation, as scribed by Gila Pearson RDMS in my presence and it is both accurate and complete. Gila Gaines RDMS, am scribing for, and in the presence of, Dr. José Antonio Poe and in the presence of the patient.
--- NOTE | 2024-03-23 11:19 | VEIN_ITS ---
Patient Name: KERI AGRAWAL MR#: [id number] : 1970 Exam Date: 03/23/2024 Ordering Doctor: DR JOSÉ ANTONIO POE M.D. RADIOLOGY REPORT PROCEDURE: [facility] - OFFICE VISIT FOLLOW UP COMPARISON: [facility], 02/29/2024. [facility], 02/09/2024. PROGRESS NOTES: The patient reports mild moderate distal left leg pain with pressure following left leg micro foam chemical ablation. The patient has not taken any oral analgesics. The patient has worn her compression stocking as directed Physical exam demonstrates multiple thrombosed varicose veins. No residual patent varicose veins are observed. No erythema or warmth to suggest cellulitis or thrombophlebitis. No active ulceration. Review of the ultrasound performed the same day demonstrates occlusive thrombus extending throughout the treated incompetent left leg varicose veins. No residual varicose veins. There is a 13 cm segment of deep vein thrombus in a left posterior tibial vein, 10 cm from the popliteal junction. The patient expressed a desire to proceed with treatment of incompetent right leg varicose veins. VEIN/[facility] IMPRESSION: 1. Successful ablation of treated left leg varicose veins 2. Persistent right leg varicose veins. PLAN: Micro foam chemical ablation right leg incompetent varicose veins Nurse notes, history and physical were reviewed and confirmed, see attached forms. The nurse was present throughout the physical exam and consultation Dictated by: José Antonio Poe MD on 03/23/2024 at 13:24 Approved by: José Antonio Poe MD on 03/23/2024 at 13:25
--- NOTE | 2024-03-23 11:19 | VEIN_ITS ---
Patient Name: KERI AGRAWAL MR#: [id number] : 1970 Exam Date: 03/23/2024 Ordering Doctor: DR JOSÉ ANTONIO POE M.D. RADIOLOGY REPORT PROCEDURE: VC EXT VENOUS LT LIMITED COMPARISON: VC EXT VENOUS LT LIMITED, 02/29/2024. INDICATIONS: I80.02 - Phlebitis and thrombophlebitis of superficial veins left leg TECHNIQUE: Lower extremity robert scale and Duplex Doppler evaluation of the deep venous system from the inguinal ligament through the calf veins. FINDINGS: REGION: Left lower extremity. THROMBI: Positive for DVT. Chemically induced thrombus in left leg varicose veins. Thrombus extends into PTV from mid to distal lower leg in a 13 cm segment. Thrombus is approximately 10 cm from SPJ. COMPRESSIBILITY: Non-compressible segments corresponding to thrombus FLOW: Areas of no flow corresponding to thrombus OTHER: No significant varicose veins remain. CONCLUSION: Post ablation occlusion of treated left leg varicose veins with a deep vein thrombus in the posterior tibial vein likely related to associated perforating veins. This is 10 cm from the popliteal vein Dictated by: José Antonio Poe MD on 03/23/2024 at 11:43 Approved by: José Antonio Poe MD on 03/23/2024 at 11:46
[2024-03-23 11:38] VITALS: BP 117/83; PULSE 75; O2SAT 99; BMI 46.2
--- NOTE | 2024-03-23 12:11 | P.DS_ITS ---
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
== END 2024-03-23 12:14 | disposition home or self-care (01) ==
PROVIDERS: PCP Radiology Diagnostic Radiology; Visit Provider Radiology Diagnostic Radiology
DX: I80.02 Phlebitis and thrombophlebitis of superficial vessels of left lower extremity (principal)
CPT/HCPCS: 93971; G0463